=== PATIENT | male | born 1935 | race Caucasian/White ===

== ENCOUNTER 2017-06-04 17:43 | Inpatient (IN) ==
[2017-06-04 19:26] LABS: Basophils # 0.1 10*3/uL (0.0-0.2); Basophils % 0.6 % (0.0-0.8); Eosinophils # 0.1 10*3/uL (0.0-0.87); Eosinophils % 1.3 % (0.00-10.9); Hematocrit 37.7 VOL% (42.0-52.0); Hemoglobin 13.3 GM/DL (14.0-18.0); Immature Granulocytes % 0.4 %; Immature Granulocytes Absolute 0.04 #; Lymphocytes # 1.4 10*3/uL (1.4-4.0); Lymphocytes % 15.3 % (21.2-54.2); Mean Corpuscular HGB Conc 35.3 GM/DL (32-36); Mean Corpuscular Hemoglobin 33 PG (27-34); Mean Corpuscular Volume 93.3 FL (87-102); Mean Platelet Volume 9.9 FL (9.6-12.0); Monocytes # 0.7 10*3/uL (0.11-0.8); Monocytes % 7.3 % (1.7-12.7); Neutrophils # 6.8 10*3/uL (1.4-7.4); Neutrophils % 75.1 % (38.7-73.9); Platelet Count 177 T/CUMM (130-400); Red Blood Count 4.04 MC/CUMM (3.8-5.5); Red Cell Distribution Width 12.3 % (9.3-17.3); White Blood Count 9.1 T/CUMM (4-12)
[2017-06-04 19:40] LABS: INR 0.9; Partial Thromboplastin Time < 21.0 SECS (0-40)
[2017-06-04 19:49] LABS: Alanine Aminotransferase 9 U/L (16-61); Albumin 3.5 G/DL (3.4-5.0); Alkaline Phosphatase 87 U/L (45-117); Aspartate Amino Transferase 15 U/L (0-37); Bilirubin,Total < 0.39 MG/DL (0.2-1.0); Blood Urea Nitrogen 39 MG/DL (7-18); Calcium 9.6 MG/DL (8.5-10.1); Glucose 177 MG/DL (74-106); Magnesium 2.4 MG/DL (1.8-2.4); Osmolality,Calculated 293.3 MOS/KG (273-304); Potassium 4.3 MMOL/L (3.5-5.1); Sodium 141 MMOL/L (136-145); Total Protein 6.5 G/DL (6.4-8.3); Troponin I Only < 0.015 NG/ML (0.00-0.045)
[2017-06-04] MEDS ORDERED: ACETAMINOPHEN 325 MG TABLET PO PRN (22:31)
[2017-06-04] MEDS ORDERED: ONDANSETRON 4 MG/2 ML VIAL IV PRN (22:31)
[2017-06-04] MEDS ORDERED: ASPIRIN EC 81 MG TABLET PO SCH (23:00)
[2017-06-04] MEDS ORDERED: ENOXAPARIN 30 MG/0.3 ML SYRINGE SUBCUT SCH (23:00)
[2017-06-04] MEDS ORDERED: DOCUSATE SODIUM 100 MG CAPSULE PO PRN (23:54)
[2017-06-05] MEDS: amLODIPine 5 MG TABLET PO SCH ×2 (00:24→21:11)
[2017-06-05 05:20] LABS: Basophils % 0.4 % (0.0-0.8); Eosinophils # 0.3 10*3/uL (0.0-0.87); Hematocrit 33.4 VOL% (42.0-52.0); Hemoglobin 11.8 GM/DL (14.0-18.0); Immature Granulocytes % 0.3 %; Immature Granulocytes Absolute 0.02 #; Lymphocytes # 1.9 10*3/uL (1.4-4.0); Lymphocytes % 25.6 % (21.2-54.2); Mean Corpuscular HGB Conc 35.3 GM/DL (32-36); Mean Corpuscular Hemoglobin 32 PG (27-34); Mean Platelet Volume 10.3 FL (9.6-12.0); Monocytes # 0.9 10*3/uL (0.11-0.8); Neutrophils # 4.3 10*3/uL (1.4-7.4); Neutrophils % 57.7 % (38.7-73.9); Platelet Count 179 T/CUMM (130-400); Red Blood Count 3.67 MC/CUMM (3.8-5.5); Red Cell Distribution Width 12.3 % (9.3-17.3); White Blood Count 7.5 T/CUMM (4-12)
[2017-06-05 05:47] LABS: Bilirubin,Total 0.4 MG/DL (0.2-1.0); Osmolality,Calculated 292.1 MOS/KG (273-304); Potassium 4.1 MMOL/L (3.5-5.1); Risk Ratio 4.41; Total Protein 5.7 G/DL (6.4-8.3)
[2017-06-05] MEDS ORDERED: DONEPEZIL 10 MG TABLET PO SCH (09:00)
[2017-06-05] MEDS: PANTOPRAZOLE 40 MG TABLET PO SCH (09:28)
[2017-06-05] MEDS: ENTACAPONE 200 MG TABLET PO SCH ×3 (09:28→21:16)
[2017-06-05] MEDS: CARBIDOPA/LEVODOPA 25-100 MG TABLET PO SCH ×3 (09:28→21:13)
[2017-06-05] MEDS: DONEPEZIL 10 MG TABLET PO SCH (21:09)
[2017-06-05] MEDS: METOPROLOL SUCCINATE XL 25 MG TABLET PO SCH (21:09)
[2017-06-05] MEDS: CHOLECALCIFEROL 1,000 UNIT TABLET PO SCH (21:09)
[2017-06-05] MEDS: ENALAPRIL 10 MG TABLET PO SCH (21:10)
[2017-06-05] MEDS: VENLAFAXINE XR 75 MG CAPSULE PO SCH (21:10)
[2017-06-05] MEDS: GABAPENTIN 100 MG CAPSULE PO SCH (21:10)
[2017-06-05] MEDS: ATORVASTATIN 20 MG TABLET PO SCH (21:10)
[2017-06-06 05:38] LABS: Basophils % 0.6 % (0.0-0.8); Eosinophils # 0.4 10*3/uL (0.0-0.87); Eosinophils % 5.4 % (0.00-10.9); Hematocrit 33.2 VOL% (42.0-52.0); Hemoglobin 11.8 GM/DL (14.0-18.0); Immature Granulocytes % 0.6 %; Immature Granulocytes Absolute 0.04 #; Lymphocytes # 1.8 10*3/uL (1.4-4.0); Mean Corpuscular HGB Conc 35.5 GM/DL (32-36); Mean Corpuscular Hemoglobin 33 PG (27-34); Mean Corpuscular Volume 92.2 FL (87-102); Mean Platelet Volume 10.2 FL (9.6-12.0); Monocytes # 0.7 10*3/uL (0.11-0.8); Monocytes % 10.9 % (1.7-12.7); Neutrophils # 3.8 10*3/uL (1.4-7.4); Neutrophils % 55.5 % (38.7-73.9); Platelet Count 176 T/CUMM (130-400); Red Cell Distribution Width 12.3 % (9.3-17.3); White Blood Count 6.8 T/CUMM (4-12)
[2017-06-06 06:05] LABS: Calcium 9.3 MG/DL (8.5-10.1); Osmolality,Calculated 288.3 MOS/KG (273-304); Potassium 4.2 MMOL/L (3.5-5.1)
[2017-06-06] MEDS: DONEPEZIL 10 MG TABLET PO SCH ×2 (09:54→20:47)
[2017-06-06] MEDS: CARBIDOPA/LEVODOPA 25-100 MG TABLET PO SCH ×3 (09:54→20:48)
[2017-06-06] MEDS: CLOPIDOGREL 75 MG TABLET PO SCH (09:55)
[2017-06-06] MEDS: ENTACAPONE 200 MG TABLET PO SCH ×3 (09:55→20:48)
[2017-06-06] MEDS: PANTOPRAZOLE 40 MG TABLET PO SCH (09:55)
[2017-06-06] MEDS: CHOLECALCIFEROL 1,000 UNIT TABLET PO SCH (20:47)
[2017-06-06] MEDS: amLODIPine 5 MG TABLET PO SCH (20:47)
[2017-06-06] MEDS: METOPROLOL SUCCINATE XL 25 MG TABLET PO SCH (20:47)
[2017-06-06] MEDS: ATORVASTATIN 20 MG TABLET PO SCH (20:48)
[2017-06-06] MEDS: VENLAFAXINE XR 75 MG CAPSULE PO SCH (20:48)
[2017-06-06] MEDS: GABAPENTIN 100 MG CAPSULE PO SCH (20:48)
[2017-06-06] MEDS: ENALAPRIL 10 MG TABLET PO SCH (21:02)
[2017-06-07 07:46] VITALS: BP 144/70
[2017-06-07] MEDS: PANTOPRAZOLE 40 MG TABLET PO SCH (09:38)
[2017-06-07] MEDS: DONEPEZIL 10 MG TABLET PO SCH (09:38)
[2017-06-07] MEDS: CLOPIDOGREL 75 MG TABLET PO SCH (09:39)
[2017-06-07] MEDS: CARBIDOPA/LEVODOPA 25-100 MG TABLET PO SCH (09:39)
[2017-06-07] MEDS: ENTACAPONE 200 MG TABLET PO SCH (09:39)
== END 2017-06-07 10:55 | disposition hospice, home (50) | DRG 312 ==
LOC: EDBD → EDUNIT# → N.ED 17:43 → N.EDINP 22:31 → N.TELES 23:46
PROVIDERS: ADMIT Internal Medicine; ATTEND Internal Medicine

== ENCOUNTER 2018-06-20 19:18 | Inpatient (IN) ==
[2018-06-20] MEDS ORDERED: GLUCAGON 1 MG VIAL IV STA (20:22)
[2018-06-20] MEDS ORDERED: hydrALAZINE 20 MG/1 ML VIAL IV STA (20:24)
[2018-06-20] MEDS: SODIUM CHLORIDE 0.9% 1,000 ML IV SCH (23:06)
[2018-06-20] MEDS ORDERED: ONDANSETRON 4 MG/2 ML VIAL IV PRN (23:11)
[2018-06-20] MEDS ORDERED: ETOMIDATE 40 MG/20 ML VIAL IV ONE (23:14)
[2018-06-20] MEDS ORDERED: PROPOFOL 200 MG/20 ML VIAL IV ONE (23:14)
[2018-06-20] MEDS ORDERED: SUCCINYLCHOLINE 200 MG/10 ML VIAL ONE (23:14)
[2018-06-21] MEDS: PANTOPRAZOLE 40 MG VIAL IV SCH ×3 (01:11→20:55)
[2018-06-21] MEDS: SUCRALFATE 1 GM/10 ML UDCUP PO SCH ×4 (01:11→18:50)
[2018-06-21 06:01] LABS: Calcium 10.5 MG/DL (8.5-10.1); Osmolality,Calculated 301.8 MOS/KG (273-304); Potassium 4.4 MMOL/L (3.5-5.1)
[2018-06-21] MEDS: CLOPIDOGREL 75 MG TABLET PO SCH (09:49)
[2018-06-21] MEDS: amLODIPine 5 MG TABLET PO SCH (09:49)
[2018-06-21] MEDS: CARBIDOPA/LEVODOPA 25-100 MG TABLET PO SCH ×3 (09:49→20:54)
[2018-06-21] MEDS: ENTACAPONE 200 MG TABLET PO SCH ×3 (09:49→20:54)
[2018-06-21] MEDS: METOPROLOL SUCCINATE XL 25 MG TABLET PO SCH (09:50)
[2018-06-21 11:29] LABS: Calcium 10.5 MG/DL (8.5-10.1); Potassium 4.8 MMOL/L (3.5-5.1)
[2018-06-21] MEDS: VENLAFAXINE XR 75 MG CAPSULE PO SCH (20:54)
[2018-06-21] MEDS: ENALAPRIL 10 MG TABLET PO SCH (20:54)
[2018-06-21] MEDS ORDERED: DONEPEZIL HCL 23 MG PO SCH (21:00)
[2018-06-22] MEDS: SODIUM CHLORIDE 0.9% 1,000 ML IV SCH (00:31)
[2018-06-22] MEDS: SUCRALFATE 1 GM/10 ML UDCUP PO SCH ×4 (00:31→17:45)
[2018-06-22] MEDS: amLODIPine 5 MG TABLET PO SCH (09:19)
[2018-06-22] MEDS: METOPROLOL SUCCINATE XL 25 MG TABLET PO SCH (09:19)
[2018-06-22] MEDS: ENTACAPONE 200 MG TABLET PO SCH ×3 (09:19→21:24)
[2018-06-22] MEDS: CLOPIDOGREL 75 MG TABLET PO SCH (09:19)
[2018-06-22] MEDS: CARBIDOPA/LEVODOPA 25-100 MG TABLET PO SCH ×3 (09:19→21:24)
[2018-06-22] MEDS: PANTOPRAZOLE 40 MG VIAL IV SCH ×2 (09:20→21:24)
[2018-06-22] MEDS: DOCUSATE/SENNA 50-8.6 MG TABLET PO PRN (09:21)
[2018-06-22] MEDS: FINASTERIDE 5 MG TABLET PO SCH (11:50)
[2018-06-22] MEDS ORDERED: GLUCAGON 1 MG VIAL IM PRN (11:55)
[2018-06-22] MEDS ORDERED: DEXTROSE 50% 25 GM/50 ML VIAL IV PRN (11:55)
[2018-06-22] MEDS: INSULIN REGULAR 100 UNIT/ML SUBCUT SCH ×2 (16:32→21:33)
[2018-06-22] MEDS: TAMSULOSIN 0.4 MG CAPSULE PO SCH (21:24)
[2018-06-22] MEDS: VENLAFAXINE XR 75 MG CAPSULE PO SCH (21:24)
[2018-06-22] MEDS: ENALAPRIL 10 MG TABLET PO SCH (21:27)
[2018-06-23] MEDS: SUCRALFATE 1 GM/10 ML UDCUP PO SCH ×4 (00:07→17:01)
[2018-06-23 05:20] LABS: Basophils % 0.2 % (0.0-0.8); Eosinophils # 0.1 10*3/uL (0.0-0.87); Eosinophils % 1.2 % (0.00-10.9); Hematocrit 27.4 VOL% (42.0-52.0); Hemoglobin 9.5 GM/DL (14.0-18.0); Immature Granulocytes % 0.7 %; Immature Granulocytes Absolute 0.08 #; Lymphocytes # 1.9 10*3/uL (1.4-4.0); Lymphocytes % 15.5 % (21.2-54.2); Mean Corpuscular HGB Conc 34.7 GM/DL (32-36); Mean Corpuscular Hemoglobin 32 PG (27-34); Mean Platelet Volume 9.8 FL (9.6-12.0); Monocytes # 1.2 10*3/uL (0.11-0.8); Monocytes % 9.9 % (1.7-12.7); Neutrophils # 8.7 10*3/uL (1.4-7.4); Neutrophils % 72.5 % (38.7-73.9); Platelet Count 235 T/CUMM (130-400); Red Blood Count 3.01 MC/CUMM (3.8-5.5); White Blood Count 11.9 T/CUMM (4-12)
[2018-06-23 05:39] LABS: Calcium 9.8 MG/DL (8.5-10.1); Osmolality,Calculated 294.1 MOS/KG (273-304)
[2018-06-23] MEDS: SODIUM CHLORIDE 0.9% 1,000 ML IV SCH (07:41)
[2018-06-23] MEDS: INSULIN REGULAR 100 UNIT/ML SUBCUT SCH ×4 (09:11→21:00)
[2018-06-23] MEDS: CARBIDOPA/LEVODOPA 25-100 MG TABLET PO SCH ×2 (12:06→15:52)
[2018-06-23] MEDS: ENTACAPONE 200 MG TABLET PO SCH ×2 (12:06→15:52)
[2018-06-23] MEDS: PANTOPRAZOLE 40 MG VIAL IV SCH ×2 (13:31→21:01)
[2018-06-23] MEDS: amLODIPine 5 MG TABLET PO SCH (15:51)
[2018-06-23] MEDS: TAMSULOSIN 0.4 MG CAPSULE PO SCH (15:51)
[2018-06-23] MEDS: CLOPIDOGREL 75 MG TABLET PO SCH (15:51)
[2018-06-23] MEDS: FINASTERIDE 5 MG TABLET PO SCH (15:52)
[2018-06-23] MEDS: METOPROLOL SUCCINATE XL 25 MG TABLET PO SCH (15:52)
[2018-06-24] MEDS: ENTACAPONE 200 MG TABLET PO SCH ×5 (00:15→20:31)
[2018-06-24] MEDS: VENLAFAXINE XR 75 MG CAPSULE PO SCH ×2 (00:15→20:31)
[2018-06-24] MEDS: TAMSULOSIN 0.4 MG CAPSULE PO SCH ×4 (00:15→20:31)
[2018-06-24] MEDS: ENALAPRIL 10 MG TABLET PO SCH ×2 (00:16→20:33)
[2018-06-24] MEDS: CARBIDOPA/LEVODOPA 25-100 MG TABLET PO SCH ×5 (00:16→20:33)
[2018-06-24] MEDS: SUCRALFATE 1 GM/10 ML UDCUP PO SCH ×5 (00:17→23:34)
[2018-06-24 05:29] LABS: Basophils # 0.1 10*3/uL (0.0-0.2); Basophils % 0.3 % (0.0-0.8); Eosinophils % 0.2 % (0.00-10.9); Hematocrit 31.9 VOL% (42.0-52.0); Hemoglobin 10.6 GM/DL (14.0-18.0); Immature Granulocytes % 0.9 %; Immature Granulocytes Absolute 0.17 #; Lymphocytes # 2.6 10*3/uL (1.4-4.0); Lymphocytes % 13.4 % (21.2-54.2); Mean Corpuscular HGB Conc 33.2 GM/DL (32-36); Mean Corpuscular Hemoglobin 31 PG (27-34); Mean Platelet Volume 9.6 FL (9.6-12.0); Monocytes # 1.8 10*3/uL (0.11-0.8); Monocytes % 9.4 % (1.7-12.7); Neutrophils # 14.7 10*3/uL (1.4-7.4); Neutrophils % 75.8 % (38.7-73.9); Platelet Count 257 T/CUMM (130-400); Red Blood Count 3.43 MC/CUMM (3.8-5.5); Red Cell Distribution Width 12.8 % (9.3-17.3); White Blood Count 19.3 T/CUMM (4-12)
[2018-06-24 05:47] LABS: Calcium 10.3 MG/DL (8.5-10.1); Osmolality,Calculated 292.4 MOS/KG (273-304)
[2018-06-24] MEDS: INSULIN REGULAR 100 UNIT/ML SUBCUT SCH ×4 (07:46→20:59)
[2018-06-24] MEDS ORDERED: cefTRIAXone 1,000 MG in SYRINGE 1 EACH IV SCH (08:00)
[2018-06-24] MEDS: PANTOPRAZOLE 40 MG VIAL IV SCH ×2 (08:49→22:03)
[2018-06-24] MEDS: amLODIPine 5 MG TABLET PO SCH ×2 (08:56→09:25)
[2018-06-24] MEDS: FINASTERIDE 5 MG TABLET PO SCH ×2 (08:56→09:25)
[2018-06-24] MEDS: CLOPIDOGREL 75 MG TABLET PO SCH (08:56)
[2018-06-24] MEDS: METOPROLOL SUCCINATE XL 25 MG TABLET PO SCH ×2 (08:57→09:24)
[2018-06-24] MEDS ORDERED: METOPROLOL TARTRATE 5 MG/5 ML VIAL IV ONE ×2 (09:54→09:55)
[2018-06-24] MEDS: SODIUM CHLORIDE 0.9% 1,000 ML IV SCH ×2 (10:17→23:35)
[2018-06-24] MEDS: dilTIAZem Drip 125 MG/125 ML PREMIX IV SCH (10:17)
[2018-06-24] MEDS ORDERED: cefTRIAXone 1,000 MG in SYRINGE 1 EACH IV ONE ×3 (10:30→17:00)
[2018-06-24 10:36] LABS: Basophils % 0.1 % (0.0-0.8); Hematocrit 30.8 VOL% (42.0-52.0); Hemoglobin 10.3 GM/DL (14.0-18.0); Immature Granulocytes % 0.7 %; Immature Granulocytes Absolute 0.19 #; Lymphocytes % 11.4 % (21.2-54.2); Mean Corpuscular HGB Conc 33.4 GM/DL (32-36); Mean Corpuscular Hemoglobin 31 PG (27-34); Mean Corpuscular Volume 93.1 FL (87-102); Mean Platelet Volume 9.7 FL (9.6-12.0); Monocytes # 1.8 10*3/uL (0.11-0.8); Monocytes % 6.9 % (1.7-12.7); Neutrophils # 20.9 10*3/uL (1.4-7.4); Neutrophils % 80.9 % (38.7-73.9); Platelet Count 285 T/CUMM (130-400); Red Blood Count 3.31 MC/CUMM (3.8-5.5); Red Cell Distribution Width 12.8 % (9.3-17.3); White Blood Count 25.9 T/CUMM (4-12)
[2018-06-24 11:15] LABS: Band Neutrophils 6 % (0-10); Lymphocytes 7 % (20-55); Platelet Estimate Normal; Segmented Neutrophils 79 % (50-85); Total Cells Counted 100
[2018-06-24 11:16] LABS: Anisocytosis Slight
[2018-06-24 11:19] LABS: Bilirubin,Total 0.9 MG/DL (0.2-1.0); Calcium 10.3 MG/DL (8.5-10.1); Free T4 (Free Thyroxine) 1.62 NG/DL (0.76-1.46); Osmolality,Calculated 300.8 MOS/KG (273-304); Potassium 4.1 MMOL/L (3.5-5.1); Thyroid Stimulating Hormone 0.978 uIU/ml (0.358-3.74); Total Protein 7.1 G/DL (6.4-8.3)
[2018-06-24] MEDS ORDERED: ADENOSINE 6 MG/2 ML VIAL IV ONE (11:30)
[2018-06-24] MEDS ORDERED: ADENOSINE 6 MG/2 ML VIAL ONE (11:38)
[2018-06-24] MEDS ORDERED: METOPROLOL SUCCINATE XL 25 MG TABLET PO SCH (12:00)
[2018-06-24] MEDS: ZIPRASIDONE 20 MG/1 ML VIAL IM PRN (21:00)
[2018-06-25 04:50] LABS: Basophils % 0.1 % (0.0-0.8); Eosinophils % 0.1 % (0.00-10.9); Hematocrit 26.7 VOL% (42.0-52.0); Hemoglobin 9.1 GM/DL (14.0-18.0); Immature Granulocytes % 0.6 %; Immature Granulocytes Absolute 0.11 #; Lymphocytes # 1.8 10*3/uL (1.4-4.0); Lymphocytes % 9.4 % (21.2-54.2); Mean Corpuscular HGB Conc 34.1 GM/DL (32-36); Mean Corpuscular Hemoglobin 31 PG (27-34); Mean Corpuscular Volume 92.1 FL (87-102); Mean Platelet Volume 9.7 FL (9.6-12.0); Monocytes # 1.5 10*3/uL (0.11-0.8); Monocytes % 7.8 % (1.7-12.7); Neutrophils # 15.2 10*3/uL (1.4-7.4); Platelet Count 256 T/CUMM (130-400); Red Cell Distribution Width 12.8 % (9.3-17.3); White Blood Count 18.5 T/CUMM (4-12)
[2018-06-25] MEDS: ZIPRASIDONE 20 MG/1 ML VIAL IM PRN ×2 (04:55→20:03)
[2018-06-25 05:13] LABS: Osmolality,Calculated 308.3 MOS/KG (273-304); Potassium 3.8 MMOL/L (3.5-5.1)
[2018-06-25] MEDS: SUCRALFATE 1 GM/10 ML UDCUP PO SCH ×3 (05:28→17:00)
[2018-06-25] MEDS: INSULIN REGULAR 100 UNIT/ML SUBCUT SCH ×4 (07:30→20:05)
[2018-06-25] MEDS: CARBIDOPA/LEVODOPA 25-100 MG TABLET PO SCH ×4 (08:01→21:03)
[2018-06-25] MEDS: ENTACAPONE 200 MG TABLET PO SCH ×4 (08:01→21:03)
[2018-06-25] MEDS: amLODIPine 5 MG TABLET PO SCH (08:01)
[2018-06-25] MEDS: FINASTERIDE 5 MG TABLET PO SCH (08:01)
[2018-06-25] MEDS: TAMSULOSIN 0.4 MG CAPSULE PO SCH ×3 (08:01→21:03)
[2018-06-25] MEDS: PANTOPRAZOLE 40 MG VIAL IV SCH ×2 (08:49→20:03)
[2018-06-25] MEDS ORDERED: cefTRIAXone 2,000 MG in SYRINGE 1 EACH IV SCH (10:00)
[2018-06-25] MEDS: dilTIAZem Drip 125 MG/125 ML PREMIX IV SCH (12:10)
[2018-06-25] MEDS: cefTRIAXone 2,000 MG in SYRINGE 1 EACH IV SCH (17:00)
[2018-06-25] MEDS: SODIUM CHLORIDE 0.9% 1,000 ML IV SCH (17:12)
[2018-06-25] MEDS: VENLAFAXINE XR 75 MG CAPSULE PO SCH ×2 (20:05→21:03)
[2018-06-25] MEDS: ENALAPRIL 10 MG TABLET PO SCH ×2 (20:06→21:03)
[2018-06-26] MEDS: SUCRALFATE 1 GM/10 ML UDCUP PO SCH ×4 (00:12→18:40)
[2018-06-26] MEDS: SODIUM CHLORIDE 0.9% 1,000 ML IV SCH (04:45)
[2018-06-26] MEDS: MORPHINE 4 MG/1 ML VIAL IV PRN ×3 (05:22→15:47)
[2018-06-26 06:58] LABS: Basophils % 0.1 % (0.0-0.8); Hematocrit 25.9 VOL% (42.0-52.0); Hemoglobin 8.6 GM/DL (14.0-18.0); Immature Granulocytes % 1.1 %; Immature Granulocytes Absolute 0.17 #; Lymphocytes # 1.4 10*3/uL (1.4-4.0); Lymphocytes % 8.6 % (21.2-54.2); Mean Corpuscular HGB Conc 33.2 GM/DL (32-36); Mean Corpuscular Hemoglobin 32 PG (27-34); Mean Corpuscular Volume 95.2 FL (87-102); Monocytes # 1.3 10*3/uL (0.11-0.8); Monocytes % 8.4 % (1.7-12.7); Neutrophils # 13.1 10*3/uL (1.4-7.4); Neutrophils % 81.8 % (38.7-73.9); Platelet Count 252 T/CUMM (130-400); Red Blood Count 2.72 MC/CUMM (3.8-5.5); Red Cell Distribution Width 13.4 % (9.3-17.3)
[2018-06-26 07:20] LABS: Calcium 10.1 MG/DL (8.5-10.1); Osmolality,Calculated 326.2 MOS/KG (273-304); Potassium 3.6 MMOL/L (3.5-5.1)
[2018-06-26] MEDS: PANTOPRAZOLE 40 MG VIAL IV SCH ×2 (08:13→21:16)
[2018-06-26] MEDS: TAMSULOSIN 0.4 MG CAPSULE PO SCH ×2 (08:13→21:15)
[2018-06-26] MEDS: amLODIPine 5 MG TABLET PO SCH (08:13)
[2018-06-26] MEDS: CARBIDOPA/LEVODOPA 25-100 MG TABLET PO SCH ×3 (08:13→21:15)
[2018-06-26] MEDS: FINASTERIDE 5 MG TABLET PO SCH (08:13)
[2018-06-26] MEDS: ENTACAPONE 200 MG TABLET PO SCH ×3 (08:17→21:15)
[2018-06-26] MEDS: INSULIN REGULAR 100 UNIT/ML SUBCUT SCH ×4 (08:58→21:34)
[2018-06-26] MEDS: SODIUM ACETATE 100 MEQ in DEXTROSE 5% 1,000 ML IV SCH (09:00)
[2018-06-26] MEDS: cefTRIAXone 2,000 MG in SYRINGE 1 EACH IV SCH (18:05)
[2018-06-26] MEDS ORDERED: POTASSIUM CHLORIDE 20 MEQ/15 ML UDCUP PER TUBE ONE (21:00)
[2018-06-26] MEDS: VENLAFAXINE XR 75 MG CAPSULE PO SCH (21:15)
[2018-06-26] MEDS: ENALAPRIL 10 MG TABLET PO SCH (21:35)
[2018-06-26] MEDS: ZIPRASIDONE 20 MG/1 ML VIAL IM PRN (22:52)
[2018-06-27] MEDS: SODIUM ACETATE 100 MEQ in DEXTROSE 5% 1,000 ML IV SCH ×2 (00:37→13:40)
[2018-06-27] MEDS: SUCRALFATE 1 GM/10 ML UDCUP PO SCH ×4 (00:37→17:07)
[2018-06-27 05:01] LABS: Basophils % 0.1 % (0.0-0.8); Eosinophils # 0.1 10*3/uL (0.0-0.87); Eosinophils % 0.7 % (0.00-10.9); Hematocrit 25.6 VOL% (42.0-52.0); Hemoglobin 8.7 GM/DL (14.0-18.0); Immature Granulocytes % 1.3 %; Immature Granulocytes Absolute 0.13 #; Lymphocytes # 1.5 10*3/uL (1.4-4.0); Lymphocytes % 15.1 % (21.2-54.2); Mean Corpuscular Hemoglobin 31 PG (27-34); Mean Corpuscular Volume 91.8 FL (87-102); Mean Platelet Volume 10.3 FL (9.6-12.0); Monocytes % 9.9 % (1.7-12.7); Neutrophils # 7.4 10*3/uL (1.4-7.4); Neutrophils % 72.9 % (38.7-73.9); Platelet Count 264 T/CUMM (130-400); Red Blood Count 2.79 MC/CUMM (3.8-5.5); Red Cell Distribution Width 13.5 % (9.3-17.3); White Blood Count 10.2 T/CUMM (4-12)
[2018-06-27 05:09] LABS: Calcium 9.9 MG/DL (8.5-10.1); Osmolality,Calculated 330.9 MOS/KG (273-304); Potassium 3.9 MMOL/L (3.5-5.1)
[2018-06-27] MEDS: INSULIN REGULAR 100 UNIT/ML SUBCUT SCH ×4 (07:41→21:53)
[2018-06-27] MEDS: amLODIPine 5 MG TABLET PO SCH (08:14)
[2018-06-27] MEDS: FINASTERIDE 5 MG TABLET PO SCH (08:14)
[2018-06-27] MEDS: ENTACAPONE 200 MG TABLET PO SCH ×3 (08:14→21:53)
[2018-06-27] MEDS: PANTOPRAZOLE 40 MG VIAL IV SCH ×2 (08:14→21:53)
[2018-06-27] MEDS: CARBIDOPA/LEVODOPA 25-100 MG TABLET PO SCH ×3 (08:14→21:53)
[2018-06-27] MEDS: TAMSULOSIN 0.4 MG CAPSULE PO SCH ×2 (08:14→21:53)
[2018-06-27] MEDS ORDERED: POTASSIUM CHLORIDE 20 MEQ/15 ML UDCUP PER TUBE ONE (09:00)
[2018-06-27] MEDS ORDERED: METOPROLOL TARTRATE 5 MG/5 ML VIAL IV ONE (09:55)
[2018-06-27] MEDS ORDERED: METOPROLOL SUCCINATE XL 25 MG TABLET PO SCH (10:00)
[2018-06-27] MEDS: VALPROIC ACID 250 MG/5 ML UDCUP PO SCH ×2 (10:15→21:53)
[2018-06-27] MEDS: METOPROLOL TARTRATE 25 MG TABLET NG SCH ×2 (10:15→21:53)
[2018-06-27] MEDS ORDERED: ACETAMINOPHEN 325 MG TABLET PO PRN (13:31)
[2018-06-27] MEDS: ZIPRASIDONE 20 MG/1 ML VIAL IM PRN ×2 (13:38→21:54)
[2018-06-27] MEDS: cefTRIAXone 2,000 MG in SYRINGE 1 EACH IV SCH (16:25)
[2018-06-27] MEDS: VENLAFAXINE XR 75 MG CAPSULE PO SCH (21:53)
[2018-06-28] MEDS: SUCRALFATE 1 GM/10 ML UDCUP PO SCH ×4 (01:13→17:02)
[2018-06-28] MEDS: ZIPRASIDONE 20 MG/1 ML VIAL IM PRN ×2 (03:50→14:02)
[2018-06-28] MEDS: SODIUM ACETATE 100 MEQ in DEXTROSE 5% 1,000 ML IV SCH ×2 (03:55→17:02)
[2018-06-28 05:28] LABS: Basophils % 0.1 % (0.0-0.8); Eosinophils # 0.2 10*3/uL (0.0-0.87); Eosinophils % 1.8 % (0.00-10.9); Hematocrit 24.6 VOL% (42.0-52.0); Hemoglobin 8.4 GM/DL (14.0-18.0); Immature Granulocytes Absolute 0.19 #; Lymphocytes # 1.7 10*3/uL (1.4-4.0); Lymphocytes % 18.3 % (21.2-54.2); Mean Corpuscular HGB Conc 34.1 GM/DL (32-36); Mean Corpuscular Hemoglobin 32 PG (27-34); Mean Corpuscular Volume 92.1 FL (87-102); Mean Platelet Volume 10.4 FL (9.6-12.0); Monocytes # 0.9 10*3/uL (0.11-0.8); Monocytes % 9.1 % (1.7-12.7); Neutrophils # 6.5 10*3/uL (1.4-7.4); Neutrophils % 68.7 % (38.7-73.9); Platelet Count 263 T/CUMM (130-400); Red Blood Count 2.67 MC/CUMM (3.8-5.5); Red Cell Distribution Width 13.7 % (9.3-17.3); White Blood Count 9.4 T/CUMM (4-12)
[2018-06-28 06:01] LABS: Calcium 9.4 MG/DL (8.5-10.1); Osmolality,Calculated 331.9 MOS/KG (273-304); Potassium 3.7 MMOL/L (3.5-5.1)
[2018-06-28] MEDS: INSULIN REGULAR 100 UNIT/ML SUBCUT SCH ×4 (08:02→23:47)
[2018-06-28] MEDS: METOPROLOL TARTRATE 25 MG TABLET NG SCH (08:06)
[2018-06-28] MEDS: TAMSULOSIN 0.4 MG CAPSULE PO SCH ×2 (08:06→21:34)
[2018-06-28] MEDS: CARBIDOPA/LEVODOPA 25-100 MG TABLET PO SCH ×3 (08:06→21:34)
[2018-06-28] MEDS: FINASTERIDE 5 MG TABLET PO SCH (08:06)
[2018-06-28] MEDS: DOCUSATE/SENNA 50-8.6 MG TABLET PO PRN (08:06)
[2018-06-28] MEDS: ENTACAPONE 200 MG TABLET PO SCH ×3 (08:06→21:34)
[2018-06-28] MEDS: VALPROIC ACID 250 MG/5 ML UDCUP PO SCH (08:06)
[2018-06-28] MEDS: PANTOPRAZOLE 40 MG VIAL IV SCH ×2 (08:06→21:33)
[2018-06-28] MEDS: VENLAFAXINE XR 75 MG CAPSULE PO SCH (21:34)
[2018-06-28] MEDS: METOPROLOL TARTRATE 50 MG TABLET NG SCH (21:34)
[2018-06-29] MEDS: SUCRALFATE 1 GM/10 ML UDCUP PO SCH ×4 (01:08→17:01)
[2018-06-29] MEDS: ZIPRASIDONE 20 MG/1 ML VIAL IM PRN (03:22)
[2018-06-29] MEDS: SODIUM ACETATE 100 MEQ in DEXTROSE 5% 1,000 ML IV SCH ×2 (07:06→07:50)
[2018-06-29] MEDS: INSULIN REGULAR 100 UNIT/ML SUBCUT SCH ×4 (07:41→23:43)
[2018-06-29] MEDS ORDERED: METOPROLOL TARTRATE 5 MG/5 ML VIAL IV PRN (08:10)
[2018-06-29] MEDS ORDERED: MORPHINE 4 MG/1 ML VIAL ONE (08:25)
[2018-06-29] MEDS: MORPHINE 4 MG/1 ML VIAL IV PRN ×5 (08:26→19:59)
[2018-06-29] MEDS ORDERED: DEXTROSE 5% NACL 0.45% 1,000 ML IV SCH (08:30)
[2018-06-29] MEDS: PANTOPRAZOLE 40 MG VIAL IV SCH ×2 (08:31→23:43)
[2018-06-29] MEDS: ENTACAPONE 200 MG TABLET PO SCH ×3 (08:31→23:40)
[2018-06-29] MEDS: TAMSULOSIN 0.4 MG CAPSULE PO SCH ×2 (08:31→23:43)
[2018-06-29] MEDS: METOPROLOL TARTRATE 50 MG TABLET NG SCH ×2 (08:31→23:43)
[2018-06-29] MEDS: CARBIDOPA/LEVODOPA 25-100 MG TABLET PO SCH ×3 (08:31→23:43)
[2018-06-29] MEDS: FINASTERIDE 5 MG TABLET PO SCH (08:31)
[2018-06-29] MEDS ORDERED: SCOPOLAMINE 1.5 MG PATCH TRANSDERM SCH (09:00)
[2018-06-29] MEDS ORDERED: LORazepam 2 MG/1 ML VIAL IV PRN (10:04)
[2018-06-29] MEDS: ALBUTEROL/IPRATROPIUM 3 ML NEB RESP TX SCH ×2 (13:42→19:28)
[2018-06-29 21:54] VITALS: BP 132/73
[2018-06-29] MEDS: VENLAFAXINE XR 75 MG CAPSULE PO SCH (23:41)
[2018-06-30] MEDS: SUCRALFATE 1 GM/10 ML UDCUP PO SCH (00:37)
== END 2018-06-29 22:02 | disposition expired | DRG 725 ==
LOC: EDUNIT# → EDBD → N.EDINP 19:18 → N.ED 19:18 → N.5E 23:03 → SUATTDRO 06-23 09:45 → N.CC 06-24 10:00 → N.5E 06-26 11:23
PROVIDERS: ADMIT Hospitalist; ATTEND Internal Medicine